=== PATIENT | male | born 1970 | race Caucasian/White ===

== ENCOUNTER → 2016-12-11 | Outpatient (CLI) | payer BC ==
[~2016-12-11] MED LIST: ACET-732 PO; IBUP200T53
--- NOTE | 2016-12-11 09:13 | DI ---
Indication: ITS.REASON: M54.5 LOW BACK PAIN, left-sided pain worsening over the past month PROCEDURE: MRI LUMBAR SPINE W/O CONTRAST: Encounter: Initial Comparison: None Technique: Multiplanar multisequence MR imaging of the lumbar spine was performed without contrast. Findings: Alignment of the lumbar spine is within normal limits. No acute fracture identified. Conus medullaris terminates normally at L1. Paraspinal soft tissues are unremarkable. Segmental analysis: L1-L2: Normal L2-L3: No significant disk herniation or central canal stenosis. Mild degenerative facet disease contributing to minimal bilateral neural foraminal narrowing. L3-L4: Mild disk bulging with degenerative facet disease contributes to mild central canal narrowing. Mild bilateral neural foraminal stenosis. L4-L5: Annular bulge with a superimposed small central protrusion contributes to mild central canal stenosis. No significant neural foraminal stenosis. L5-S1: Left foraminal disk protrusion with mild degenerative facet disease. No central canal stenosis. Moderate bony right foraminal stenosis. Disk material displacing the exiting left L5 nerve root with severe left neural foraminal stenosis. Impression: Severe left neural foraminal stenosis at L5-S1 with nerve root impingement. .
== END ==
LOC: IMA 07:06
PROVIDERS: ATTEND Nurse Practitioner
DX: M51.27 Other intervertebral disc displacement, lumbosacral region (principal); M47.816 Spondylosis without myelopathy or radiculopathy, lumbar region; M51.26 Other intervertebral disc displacement, lumbar region